=== PATIENT | female | born 1955 | race Caucasian/White ===

== ENCOUNTER 2016-06-21 07:56 | Emergency (ER) | payer MEDICARE ==
[~2016-06-21] VITALS: Ht 175.3 cm; Wt 88.6 kg
[~2016-06-21 07:56] MED LIST: ARIP10TA16 PO; KLO2T PO; LIT300 PO; METO25TA6 PO; OXYC15TA79 PO; TIZA4TAB4 PO
[2016-06-21 08:06] VITALS: BP 134/66; PULSE 68; RESP 16; O2SAT 98
--- NOTE | 2016-06-21 08:09 | ED.REPORT ---
HPI-Back Pain 40 and Over Date of Service Jun 21, 2016 ED Provider: The patient is a 61 year old female with history of chronic back and neck pain, who presents to the emergency department complaining of left lower back pain that began 1.5 weeks ago. A few days before her pain began she was more active than normal, playing in the snow with her grandchildren and bowling. She is able to ambulate and drove herself to the emergency department. She took 10 mg oxycodone and 600 mg Ibuprofen this morning. She states she started vomiting last night due to pain. She denies lower extremity pain, bladder/bowel incontinence, numbness, weakness or inability to walk. Nursing Notes Stated Complaint: BACK PAIN Chief Complaint: Back Pain or Injury Nursing Notes Reviewed: Yes Allergies: Coded Allergies: buspirone HCl (Verified Allergy, Severe, 12/14/15) naproxen (Verified Allergy, Severe, 12/14/15) piroxicam (Verified Allergy, Severe, 12/14/15) sertraline HCl (Verified Allergy, Severe, 12/14/15) succinylcholine (Verified Allergy, Severe, 12/14/15) zolmitriptan (Verified Allergy, Unknown, 12/14/15) Uncoded Allergies: SHELLFISH (Allergy, Unknown, 10/18/13) Scheduled Clonazepam (Clonazepam) 2 Mg Tablet 2 MG PO DAILY Desvenlafaxine (Khedezla) 100 Mg Tab 100 MG PO DAILY Furosemide (Furosemide) 20 Mg Tab 20-40 MG PO DAILY Metoprolol Tartrate (Metoprolol Tartrate) 100 Mg Tablet 100 MG PO BID Mirtazapine (Mirtazapine) 30 Mg Tablet 30 MG PO HS Tizanidine (Tizanidine) 4 Mg Tablet 4 MG PO TID Vortioxetine Hydrobromide (Brintellix) 10 Mg Tablet 10 MG PO DAILY Scheduled PRN Ketorolac Tromethamine (Ketorolac Tromethamine) 10 Mg Tablet 10 MG PO TID PRN PRN For Pain Oxycodone (Roxicodone) 5 Mg Tablet 10 MG PO Q4H PRN PRN For Pain General Time Seen by MD: 08:08 Chief Complaint Back pain Hx Obtained From: Patient Arrived By: Walk-in Sudden in Onset?: No Onset Occurred: More than a week ago... Symptom Duration: Since onset Caused by: Chronic Injury Location: : Perispinal lumbar Quality: Same as prior, Painful Radiation: : Does not radiate Severity: Current: Moderate Severity: Maximum: Moderate Recent Healthcare: No recent hospitalization Similar Sx Previous: Yes Past Medical History Past Medical History Chronic neck and back pain, seeing the [facility] Restless leg syndrome TBI Sacrum injuries secondary to falls Anxiety Past Surgical History Reports: Hysterectomy Family History Noncontributory Smoking History Current Every Day Smoker Social History Alcohol Use: "Social" Drug Use: Denies drug use Other Social History: Poor social support, Local resident Ambulatory Status Independent Review of Systems GI: Reports: Vomiting (secondary to pain) Musculoskeletal: Reports: Back pain, Denies: Extremity pain Neurologic: Denies: Bladder dysfunction, Bowel dysfunction, Focal weakness, Numbness, Problem walking Complete sys rev & neg: except as marked. Physical Exam Initial Vital Signs Vital Signs (First) Date Time Temp Pulse Resp B/P Pulse Ox O2 Delivery O2 Flow Rate FiO2 06/21/16 08:06 36.5 68 16 134/66 98 Room Air Initial VS: Reviewed Head / Eyes: Atraumatic, Normocephalic, PERRL ENT: Mucous membranes moist, Conjunctiva normal, No scleral icterus Neck: Supple, Non-tender, Full range of motion Lymphatic: No lymphadenopathy Extremities: Vascular intact, Neuro intact, No swelling, No tenderness Skin: Warm, Dry, No cyanosis Psychiatric: Mood/affect normal, Behavior normal, Normal thought content General/Constitutional: Awake, Alert Respiratory / Chest: Atraumatic, Breath sounds NL, Breath sounds = bilat, No respiratory distress, No rales, No rhonchi, No wheezing Cardiovascular: Heart rate NL, Regular rhythm, Heart sounds NL, No murmurs, Peripheral circulation NL Abdomen: Atraumatic, Soft, Non-tender, No guarding, No rebound, No distention, No palpable mass, No pulsatile mass Back: No midline vertebral tend, Straight leg raise neg Left lumbar paraspinal and buttock tenderness Neurologic: Oriented X3, Speech NL, No motor deficits, No sensory deficits, Cerebellar NL, Memory NL, Gait NL Re-Eval/Medical Decision Med Decision/Clinical Course This is a very pleasant 61-year-old female with a chronic pain syndrome exacerbation due to overuse. High-risk features are absent. Patient is treated medically and has improved and is agreeable to discharge. She requests oral Toradol. Extensive discussion, education, reassurance, and follow-up precautions provided. Source of Hx: Old records Re-Evaluation/Progress #1: Time of Eval: 09:43 Re-Evaluation/Progress Note: Rechecked the patient. Re-Evaluation/Progress #2: Time of Eval: 10:22 Re-Evaluation/Progress Note: Rechecked the patient. She is feeling better and ready to be discharged home. All questions were addressed. Counseled Regarding: Diagnosis, Need for follow-up, When/why to return to ED Discharge & Departure Impression: Primary Impression: Low back pain Chronicity: chronic Back pain laterality: left Sciatica presence: without sciatica Qualified Code: M54.5 - Low back pain Disposition: Home Discharge Condition All VS Reviewed: Yes Condition: Stable Patient Instructions: Acute Low Back Pain (ED) Additional Instructions: Thank you for entrusting us with your care today. Your exam findings are reassuring. There is no evidence of anything acutely dangerous at this time. Use the Toroidal as needed for pain. Followup with your regular doctor if your symptoms continue. You can also followup at [facility] for further pain management options. Return to the emergency department if you develop focal weakness or numbness, bladder/bowel incontinence, or any other new or concerning symptoms. Referrals: Zackery Johns MD (PCP) Scribe Attestation Portions of this note were transcribed by Paula Reeves. I, Dr. Tamayo personally performed the history, physical exam and medical decision-making; I reviewed and confirmed the accuracy of the information in the transcribed note. Signed by: Delfin Felder, 06/21/2016 and 1038. copies to: Zackery Johns MD, Timothy S DO Jun 21, 2016 08:09 Paula Reeves Jun 21, 2016 08:11
[2016-06-21] MEDS ORDERED: DESV100T14 PO (08:28)
[2016-06-21] MEDS ORDERED: VORT10TA PO (08:28)
[2016-06-21] MEDS ORDERED: METO100T3 PO (08:28)
[2016-06-21] MEDS ORDERED: MIRT30TA6 PO (08:28)
[2016-06-21] MEDS ORDERED: OXYC-474 PO (08:28)
[2016-06-21] MEDS ORDERED: FUR20 PO (08:28)
[2016-06-21] MEDS ORDERED: Ondansetron 8 mg ODT Tablet PO ONE (09:30)
[2016-06-21] MEDS ORDERED: KETO10TA PO (10:38)
[2016-06-21 11:09] VITALS: BP 114/72; PULSE 50; O2SAT 97
== END 2016-06-21 11:01 | disposition home or self-care (01) ==
LOC: SED 07:56
DX: M54.5 Low back pain (principal); M54.2 Cervicalgia; G89.4 Chronic pain syndrome; R11.10 Vomiting, unspecified; F17.200 Nicotine dependence, unspecified, uncomplicated; Z87.820 Personal history of traumatic brain injury; Z87.828 Personal history of other (healed) physical injury and trauma; Z88.8 Allergy status to other drugs, medicaments and biological substances; Z88.6 Allergy status to analgesic agent
CPT/HCPCS: 96372; 99284; J3360

== ENCOUNTER 2016-12-16 08:03 | Emergency (ER) | payer MEDICARE ==
[~2016-12-16] VITALS: Ht 175.3 cm; Wt 90.9 kg
[~2016-12-16 08:03] MED LIST changes: -ARIP10TA16 PO; +DESV100T14 PO; +FUR20 PO; +KETO10TA PO; -LIT300 PO; +METO100T3 PO; -METO25TA6 PO; +MIRT30TA6 PO; +OXYC-474 PO; -OXYC15TA79 PO; +VORT10TA PO
[2016-12-16 08:06] VITALS: BP 161/80; PULSE 63; RESP 26; O2SAT 100
--- NOTE | 2016-12-16 08:07 | ED.REPORT ---
HPI-Chest Pain 40 and Over Date of Service Dec 16, 2016 ED Provider: Berto Ha MD Patient is a 61 year old female with a history of chronic neck and back pain, depression, restless leg syndrome, previous TBI, and sacral injuries who presents to the ED with multiple medical complaints that became increasingly worse this morning. The patient's chief complaint is that she is experiencing a migraine headache. Patient additionally reports experiencing chest pain, worsening stress, anxiety, nausea, vomiting and a migraine for the past 4 days which has resulted in insomnia for the past few nights. Her migraine is localized on the left side of her head and is associated with photophobia. She reports that this feels similar to her previous migraine headaches. Her chest pain is an ache and is not exacerbated by anything and does not radiate anywhere outside the chest wall. She denies cardiac history or any current blood thinners. The chest discomfort seems to be associated with her migraine and has been present for the last 4 days ever since her migraine headache started. Nursing Notes Stated Complaint: PAIN IN CHEST/NECK/BACK Chief Complaint: General Complaint Nursing Notes Reviewed: Yes Allergies: Coded Allergies: buspirone HCl (Verified Allergy, Severe, 12/14/15) naproxen (Verified Allergy, Severe, 12/14/15) piroxicam (Verified Allergy, Severe, 12/14/15) sertraline HCl (Verified Allergy, Severe, 12/14/15) succinylcholine (Verified Allergy, Severe, 12/14/15) zolmitriptan (Verified Allergy, Unknown, 12/14/15) Uncoded Allergies: SHELLFISH (Allergy, Unknown, 10/18/13) Scheduled Clonazepam (Clonazepam) 2 Mg Tablet 2 MG PO DAILY Desvenlafaxine (Khedezla) 100 Mg Tab 100 MG PO DAILY Furosemide (Furosemide) 20 Mg Tab 20-40 MG PO DAILY Metoprolol Tartrate (Metoprolol Tartrate) 100 Mg Tablet 100 MG PO BID Mirtazapine (Mirtazapine) 30 Mg Tablet 30 MG PO HS Tizanidine (Tizanidine) 4 Mg Tablet 4 MG PO TID Vortioxetine Hydrobromide (Brintellix) 10 Mg Tablet 10 MG PO DAILY Scheduled PRN Ketorolac Tromethamine (Ketorolac Tromethamine) 10 Mg Tablet 10 MG PO TID PRN PRN For Pain Oxycodone (Roxicodone) 5 Mg Tablet 10 MG PO Q4H PRN PRN For Pain General Time Seen by MD: 08:06 Chief Complaint Other (Headache) Hx Obtained From: Patient Arrived By: Walk-in Sudden in Onset?: No Onset Occurred: 1 - 4 hours ago Symptom Duration: Since onset Location: : Back: Chest left: Chest right: Neck Quality: Painful Radiation: : Does not radiate Migration/Movement: Reports: None Severity: Current: Mild Severity: Maximum: Mild Associated with: Reports: Insomnia, Nausea, Vomiting Pertinent Negative: Pt denies other symptoms Recent Healthcare: No recent doctor visit, No recent hospitalization Risk Factors )( CAD Risk Stratification Risk factors reviewed )( TAD Risk Stratification Risk factors reviewed )( PE Risk Stratification Risk factors reviewed Past Medical History Past Medical History Chronic neck and back pain, seeing the [facility] Restless leg syndrome TBI Sacrum injuries secondary to falls Anxiety Past Surgical History Reports: Hysterectomy Family History Noncontributory Smoking History Current Every Day Smoker Social History Alcohol Use: "Social" Drug Use: Denies drug use Other Social History: Poor social support, Local resident Ambulatory Status Independent Review of Systems Cardiovascular: Reports: Chest pain GI: Reports: Nausea, Vomiting Musculoskeletal: Reports: Back pain, Extremity swelling (R leg), Neck pain Neurologic: Reports: Headache Psychiatric: Reports: Anxiety, Insomnia, Stress Complete sys rev & neg: except as marked. Eyes: Reports: Photophobia Physical Exam Initial Vital Signs Vital Signs (First) Date Time Temp Pulse Resp B/P Pulse Ox O2 Delivery O2 Flow Rate FiO2 12/16/16 08:06 36.2 63 26 161/80 100 Room Air Initial VS: Reviewed Head / Eyes: Atraumatic, Normocephalic, PERRL Extremities: Vascular intact, Neuro intact, No swelling, No tenderness Skin: Warm, Dry, No cyanosis Neurologic: Alert, Oriented, Nonfocal Psychiatric: Mood/affect normal, Behavior normal, Normal thought content General/Constitutional: Awake, Alert, Well developed Distress / Hydration: Positive: Distress moderate Behavior: Positive: Anxious Respiratory / Chest: Atraumatic, Breath sounds NL, Breath sounds = bilat, No respiratory distress, No chest tenderness Cardiovascular: Heart rate NL, Regular rhythm, Heart sounds NL, No gallop, No murmurs, No rubs Abdomen: Atraumatic, Soft, Non-tender, No distention Neck: Atraumatic, Supple, Full range of motion Back: Atraumatic, Inspection NL Interpretation & Diagnostics Lab Results Interpretation Result Diagram: 12/16/16 0900 12/16/16 0900 Test 12/16/16 09:00 White Blood Count 9.2th/mm3 (3.8-10.1) Red Blood Count 4.50mil/mm3 (3.90-5.20) Hemoglobin 14.7g/dL (12.0-15.6) Hematocrit 40.9% (35.0-46.0) Mean Corpuscular Volume 90.9fL (81-100) Mean Corpuscular Hemoglobin 32.7pg (27.0-35.0) Mean Corpuscular Hemoglobin Concent 35.9% (32.0-37.0) Red Cell Distribution Width 12.8% (12.3-15.4) Platelet Count 264bil/L (150-400) Neutrophils (%) (Auto) 65.5% (40-74) Lymphocytes (%) (Auto) 25.7% (14-46) Monocytes (%) (Auto) 7.1% (4-12) Eosinophils (%) (Auto) 1.4% (0-5) Basophils (%) (Auto) 0.2% (0-3) Sodium Level 129mEq/L (134-144) Potassium Level 3.3mEq/L (3.5-5.2) Chloride Level 87mEq/L (97-108) Carbon Dioxide Level 26mmol/L (18-29) Blood Urea Nitrogen 20mg/dL (8-27) Creatinine 0.82mg/dL (0.57-1.00) Estimat Glomerular Filtration Rate 102mL/min (>59) Glucose Level 116mg/dL (60-99) Calcium Level 9.3mg/dL (8.5-10.1) Magnesium Level 1.8mg/dL (1.6-2.6) Total Bilirubin 0.4mg/dL (0.0-1.2) Aspartate Amino Transf (AST/SGOT) 25U/L (0-50) Alanine Aminotransferase (ALT/SGPT) 29U/L (0-32) Alkaline Phosphatase 71U/L (25-165) Troponin T 0.010ug/L (0.0-0.011) Total Protein 7.3g/dL (6.4-8.4) Albumin 3.9g/dL (3.4-5.0) ECG Interpretation ECG Interpretation: Sinus rhythm Rate 54 bpm Normal axis Normal intervals No ST changes No T wave abnormalities 12/14/2015 - no acute changed baseline quality of EKG is poor due to pt movement Time: 08:54 Interpreted by: ED physician X-Ray Chest Interpretation Chest Xray Interpretation: IMPRESSION: No acute cardiopulmonary disease. Dictated by: Lesvia Lopez M.D. on 12/16/2016 at 9:35 Interpretation / Wet Read by: Interpret - Radiologist Re-Eval/Medical Decision Med Decision/Clinical Course Patient is a 61 year old female with a history of chronic neck and back pain, depression, restless leg syndrome, previous TBI, and sacral injuries who presents to the ED with multiple medical complaints that became increasingly worse this morning. The patient's chief complaint is that she is experiencing a migraine headache. Patient additionally reports experiencing chest pain, worsening stress, anxiety, nausea, vomiting and a migraine for the past 4 days which has resulted in insomnia for the past few nights. Her migraine is localized on the left side of her head and is associated with photophobia. She reports that this feels similar to her previous migraine headaches. Her chest pain is an ache and is not exacerbated by anything and does not radiate anywhere outside the chest wall. She denies cardiac history or any current blood thinners. The chest discomfort seems to be associated with her migraine and has been present for the last 4 days ever since her migraine headache started. Here in the emergency department the patient is very anxious though is otherwise afebrile, hemodynamically stable and in no apparent significant distress. Her neurologic examination is completely nonlateralizing. Patient was treated with the below medications:L IV fluids Reglan Benadryl Tylenol Ativan EKG Sinus rhythm Rate 54 bpm Normal axis Normal intervals No ST changes No T wave abnormalities 12/14/2015 - no acute changed baseline quality of EKG is poor due to pt movement Chest X-ray IMPRESSION: No acute cardiopulmonary disease. Laboratory studies notable as below: CBC Unremarkable CMP Unremarkable except Na - 129 K - 3.3 Troponin Negative Overall presentation consistent with panic/anxiety, migraine headache. After treatment with the above medications the patient reported dramatic symptom improvement. Serial neurologic assessments remained benign. Initial workup for acute coronary syndrome is negative. The nature of her presentation not classically suggestive of acute coronary syndrome. I applied the heart score to this patient's management and based on this I do not feel that further acute coronary syndrome workup is indicated. Presentation is unconvincing for pulmonary embolism as she denies shortness of breath and is without tachypnea, tachycardia, pleuritic chest pain. Patient reports feeling better and would like to go home. I feel that this is reasonable. Prior to discharge follow-up and return precautions were reviewed in detail with the patient who verbalized understanding and agreement with the plan. The patient was discharged in stable condition. Time of Eval: 10:19 Patient Status: Condition improved Re-Evaluation/Progress Note: Patient is rechecked. She is informed of all of her results. Discussed intended treatment plan. All of the pateint's questions are addressed. She understands and agrees with the treatment plan. Counseled Regarding: Diagnosis, Lab results, Need for follow-up, When/why to return to ED Discharge & Departure Primary Impression: Migraine headache Migraine type: unspecified Status migrainosus presence: without status migrainosus Intractability: not intractable Qualified Code: G43.909 - Migraine, unspecified, not intractable, without status migrainosus Additional Impressions: Hyponatremia Hypokalemia Anxiety Disposition: Home Discharge Condition All VS Reviewed: Yes Condition: Improved Patient Instructions: Migraine Headache (ED) Additional Instructions: Thank you for seeking care at emergency room. It is difficult for us to make definitive diagnoses in the ED but we believe that you are experiencing a migraine headache. Your lab work did reveal low levels of sodium and low levels of potassium. I recommend that you follow-up with your primary doctor in the next week. Our primary goal today in the ED was to evaluate you for any life-threatening conditions. Your evaluation was reassuring. You should return to the ED immediately if you develop worsening headache, neck stiffness, fevers, vomiting, cough, shortness of breath, chest pain, lightheadedness, weakness or any other concerning signs or symptoms. Referrals: Zackery Johns MD (PCP) Scribe Attestation Portions of this note were transcribed by Ronald Juárez. I, Dr. Ha personally performed the history, physical exam and medical decision-making; I reviewed and confirmed the accuracy of the information in the transcribed note. Signed by: Delfin Harrington, 12/16/16 1022. copies to: Zackery Johns MD,Berto Johnson MD Dec 16, 2016 08:07 RONALD JUÁREZ Dec 16, 2016 08:16
[2016-12-16] MEDS ORDERED: MetoCLOpramide 5 mg/mL 2 mL Inj IVPUSH ONE (08:25)
[2016-12-16] MEDS ORDERED: 0.9% Sodium Chloride 1,000 ML IV ONE (08:25)
[2016-12-16 09:13] LABS: BASOPHILS % (AUTO) 0.2 % (0-3); EOSINOPHILS % (AUTO) 1.4 % (0-5); MONOCYTES % (AUTO) 7.1 % (4-12); Mean Corpuscular Hemoglobin 32.7 pg (27.0-35.0); Mean Corpuscular Volume 90.9 fL (81-100); NEUTROPHILS % (AUTO) 65.5 % (40-74); Platelet Count 264 bil/L (150-400)
[2016-12-16 09:35] LABS: TROPONIN T 0.01 ug/L (0.0-0.011)
--- NOTE | 2016-12-16 09:37 | DRSVH ---
PROCEDURE: X-RAY CHEST ONE VIEW, PORTABLE ([id number]) INDICATIONS: Chest pain. TECHNIQUE: One view of the chest was acquired. COMPARISON: [facility], CR, XR CHEST 1VW (PORTABLE), 02/28/2015, 4:45. FINDINGS: Surgical changes and devices: None. Lungs and pleura: No pleural effusions or pneumothorax. Lungs are clear. Mediastinum: Mediastinal contours appear normal. Heart size is normal. Bones and chest wall: No suspicious bony lesions. Overlying soft tissues appear unremarkable. IMPRESSION: No acute cardiopulmonary disease. Dictated by: Lesvia Lopez M.D. on 12/16/2016 at 9:35 Approved by: Lesvia Lopez M.D. on 12/16/2016 at 9:35
[2016-12-16 09:42] VITALS: BP 107/62; PULSE 72; RESP 16; O2SAT 95
[2016-12-16 09:46] LABS: Magnesium 1.8 mg/dL (1.6-2.6)
[2016-12-16 10:40] VITALS: BP 132/67; PULSE 72; RESP 17; O2SAT 98
== END 2016-12-16 10:41 | disposition home or self-care (01) ==
LOC: SED 08:03
DX: G43.909 Migraine, unspecified, not intractable, without status migrainosus (principal); E87.1 Hypo-osmolality and hyponatremia; E87.6 Hypokalemia; F41.9 Anxiety disorder, unspecified; Z90.710 Acquired absence of both cervix and uterus; Z87.820 Personal history of traumatic brain injury; F17.200 Nicotine dependence, unspecified, uncomplicated; Z79.899 Other long term (current) drug therapy; Z88.8 Allergy status to other drugs, medicaments and biological substances
CPT/HCPCS: 36415; 71010; 80053; 83735; 84484; 85025; 93005; 96361; 96374; 96375; 99285; J1200; J2060; J2765; J7030

== ENCOUNTER 2016-12-20 05:01 | Emergency (ER) | payer MEDICARE ==
[~2016-12-20] VITALS: Ht 175.3 cm; Wt 90.9 kg
[2016-12-20 05:03] VITALS: BP 99/47; PULSE 65; RESP 16; O2SAT 93
--- NOTE | 2016-12-20 06:09 | ED.REPORT ---
HPI-General Illness Date of Service Dec 20, 2016 ED Provider: Zoran Barba DO The pt is a 61 y/o female w/ a hx of bipolar disorder, chronic neck and back pain, and depression presenting to the ED via EMS complaining of a headache. She is also experiencing pain in her back and neck. She was picked up by EMS due to her gagging over the toilet due to the pain. She describes the pain being the same chronic neck and back pain she has had in the past and has "good days and bad days". Her symptoms are also making it difficult for her to fall asleep. The pt reports taking Oxycodone earlier this morning and yesterday afternoon for the pain. Denies urinary incontinence. She is also experiencing an area of erythema and warmth that feels infected in the antecubital region of her L arm. The pt was seen in the ED 4 days ago for similar symptoms. The headache was fixed but the back and neck pain remained the same. She goes to the [facility] for her chronic neck and back pain. Nursing Notes Stated Complaint: NECK,BACK PAIN,HEADACHE Chief Complaint: Headache Nursing Notes Reviewed: Yes Allergies: Coded Allergies: buspirone HCl (Verified Allergy, Severe, 12/14/15) naproxen (Verified Allergy, Severe, 12/14/15) piroxicam (Verified Allergy, Severe, 12/14/15) sertraline HCl (Verified Allergy, Severe, 12/14/15) succinylcholine (Verified Allergy, Severe, 12/14/15) zolmitriptan (Verified Allergy, Unknown, 12/14/15) Uncoded Allergies: SHELLFISH (Allergy, Unknown, 10/18/13) Scheduled Cephalexin (Keflex) 500 Mg Capsule 500 MG PO QID Clonazepam (Clonazepam) 2 Mg Tablet 2 MG PO DAILY Desvenlafaxine (Khedezla) 100 Mg Tab 100 MG PO DAILY Furosemide (Furosemide) 20 Mg Tab 20-40 MG PO DAILY Metoprolol Tartrate (Metoprolol Tartrate) 100 Mg Tablet 100 MG PO BID Mirtazapine (Mirtazapine) 30 Mg Tablet 30 MG PO HS Tizanidine (Tizanidine) 4 Mg Tablet 4 MG PO TID Vortioxetine Hydrobromide (Brintellix) 10 Mg Tablet 10 MG PO DAILY Scheduled PRN Ketorolac Tromethamine (Ketorolac Tromethamine) 10 Mg Tablet 10 MG PO TID PRN PRN For Pain Oxycodone (Roxicodone) 5 Mg Tablet 10 MG PO Q4H PRN PRN For Pain General Time Seen by MD: 06:09 Chief Complaint Headache Hx Obtained From: Patient Arrived By: Walk-in Sudden in Onset?: Yes Onset Occurred: 4 days ago Symptom Duration: Since onset Recent Healthcare: Recent doctor visit, Recent hospitalization Similar Sx Previous: Yes Past Medical History Past Medical History Chronic neck and back pain, seeing the [facility] Restless leg syndrome TBI Sacrum injuries secondary to falls Anxiety Bipolar disorder Depression Suicidal ideations Past Surgical History Reports: Hysterectomy Family History Noncontributory Smoking History Current Every Day Smoker Social History Alcohol Use: "Social" Drug Use: Denies drug use Other Social History: Poor social support, Local resident Ambulatory Status Independent Review of Systems Full Review of Systems Female: Denies: Incontinence Musculoskeletal: Reports: Back pain, Neck pain Neurologic: Reports: Headache, Slurred speech Complete sys rev & neg: except as marked. Physical Exam Vital Signs Vital Signs Date Time Temp Pulse Resp B/P Pulse Ox O2 Delivery O2 Flow Rate FiO2 12/20/16 05:03 36.5 65 16 99/47 93 Room Air Initial VS: Reviewed General/Constitutional: Awake, Alert Alertness: Positive: Somnolent Head / Eyes: Atraumatic, Normocephalic ENT: Atraumatic, Airway patent, Mucous membranes moist Neck: Atraumatic, Supple, Full range of motion C-Spine nontender Respiratory / Chest: Atraumatic, Breath sounds NL, Breath sounds = bilat, No respiratory distress Cardiovascular: Heart rate NL, Regular rhythm, Heart sounds NL Abdomen: Atraumatic, Soft, Non-tender Back: Atraumatic, Full range of motion Thoracic and lumbar spine nontender Upper Extremities Upper Extremity / MS: Atraumatic, Full range of motion Lower Extremity / Pelvis / MS: Atraumatic, No deformity Intact motor and sensory function from L1 to S1 bilaterally Skin: Warm, Dry, Intact Rash / Lesion Notes: minor swelling to the left antecubital fossa with redness and warmth, no induration or fluctuance Neurologic: Oriented X3, No sensory deficits Intact motor and sensory function from L1 to S1 bilaterally Interpretation & Diagnostics Lab Results Interpretation Test 12/20/16 05:11 Hold Purple Top Tube Received (Received) Hold Blue Top Tube Received (Received) Hold [place] Top Tube Received (Received) Re-Eval/Medical Decision Med Decision/Clinical Course Patient presents complaining of chronic pain symptoms. Her physical exam is notable for minor swelling to the left antecubital fossa with redness and warmth, no induration or fluctuance. She is neurologically intact and does not have reproducible back pain. She fully identifies that this her neck and back pain are chronic and have not changed from the prior baseline. She is sleepy in the room, it does not seem prudent to give her narcotic medications due to her sleepiness. When told that we would pursue nonnarcotic pharmacologic options for her pain, She stated that that would be a waste of time and requested discharge home. She is up and ambulatory with a steady gait after a period of observation in the ER. She will be discharged. Keflex is prescribed for the redness and warmth to the left arm which may be superficial thrombophlebitis or very early cellulitis. Return and follow-up precautions given Source of Hx: Old records Time of Eval: 07:03 Re-Evaluation/Progress Note: Pt rechecked. Pt was falling asleep in the room and was told narcotics would not be given and would now like to go home. F/U instructions and RTER warnings given. All questions addressed. Counseled Regarding: Diagnosis, Lab results, Need for follow-up, When/why to return to ED Discharge & Departure Primary Impression: Acute exacerbation of chronic low back pain Disposition: Home Discharge Condition All VS Reviewed: Yes Condition: Stable Additional Instructions: Continue your chronic pain medications. Call your doctor in the morning for close follow-up. Avoid overusing your medications as this can cause excessive sleepiness. Also, on your left arm you either have very early cellulitis or a superficial thrombophlebitis. Apply hot packs and use Keflex as prescribed. Return to the ER as needed for high fever, loss of bowel or bladder control, new numbness or weakness, or other concerns Referrals: Zackery Johns MD (PCP) Scribe Attestation Portions of this note were transcribed by Daniel Avina. I, Dr. Barba personally performed the history, physical exam and medical decision-making; I reviewed and confirmed the accuracy of the information in the transcribed note. Signed by : Delfin Villalobos, 12/20/16 and [id number]. copies to: Zackery Johns MD, Timothy S DO Dec 20, 2016 06:09 Daniel Avina Dec 20, 2016 06:16
[2016-12-20] MEDS ORDERED: Ketorolac 15 mg/mL Inj IVPUSH ONE (06:35)
[2016-12-20] MEDS ORDERED: Ondansetron 2 mg/mL 2 mL Inj IVPUSH PRN (06:35)
[2016-12-20] MEDS ORDERED: CEPH-512 PO (07:19)
[2016-12-20 07:54] VITALS: BP 95/60; PULSE 77; RESP 14; O2SAT 94
== END 2016-12-20 07:40 | disposition home or self-care (01) ==
LOC: SED 05:01
DX: M54.5 Low back pain (principal); G89.29 Other chronic pain; F41.8 Other specified anxiety disorders; F31.9 Bipolar disorder, unspecified; F17.200 Nicotine dependence, unspecified, uncomplicated; Z88.8 Allergy status to other drugs, medicaments and biological substances
CPT/HCPCS: 96374; 96375; 99284; J1885; J2405

== ENCOUNTER 2017-01-21 02:56 | Emergency (ER) | payer MEDICARE ==
[~2017-01-21] VITALS: Ht 175.3 cm; Wt 90.9 kg
[~2017-01-21 02:56] MED LIST changes: +CEPH-512 PO
[2017-01-21 03:05] VITALS: BP 123/47; PULSE 61; RESP 18; O2SAT 98
--- NOTE | 2017-01-21 03:13 | ED.REPORT ---
HPI-General Illness Date of Service Jan 21, 2017 ED Provider: Dr. Posey Pt is a 61 year old female with a hx of traumatic brain injury presenting to the ED complaining of black diarrhea onset 5 days ago. Associated symptoms include severe lower back pain, abdominal bloating, LE swelling, diaphoresis, and trouble with ambulation due to pain. Denies fever, chills, nausea, vomiting , SOB or wheezing. She states that she came to the ED today because her neighbor advised her to. Pt reports that she has been using Pepto Bismol but that the black stool preceded her use of the Pepto Bismol. Nursing Notes Stated Complaint: POSS ABDOMINAL BLEEDING Chief Complaint: Female Abdominal Pain Nursing Notes Reviewed: Yes Allergies: Coded Allergies: buspirone HCl (Verified Allergy, Severe, 12/14/15) naproxen (Verified Allergy, Severe, 12/14/15) piroxicam (Verified Allergy, Severe, 12/14/15) sertraline HCl (Verified Allergy, Severe, 12/14/15) succinylcholine (Verified Allergy, Severe, 12/14/15) zolmitriptan (Verified Allergy, Unknown, 12/14/15) Uncoded Allergies: SHELLFISH (Allergy, Unknown, 10/18/13) Scheduled Cephalexin (Keflex) 500 Mg Capsule 500 MG PO QID Clonazepam (Clonazepam) 2 Mg Tablet 2 MG PO DAILY Desvenlafaxine (Khedezla) 100 Mg Tab 100 MG PO DAILY Furosemide (Furosemide) 20 Mg Tab 20-40 MG PO DAILY Metoprolol Tartrate (Metoprolol Tartrate) 100 Mg Tablet 100 MG PO BID Mirtazapine (Mirtazapine) 30 Mg Tablet 30 MG PO HS Tizanidine (Tizanidine) 4 Mg Tablet 4 MG PO TID Vortioxetine Hydrobromide (Brintellix) 10 Mg Tablet 10 MG PO DAILY Scheduled PRN Ketorolac Tromethamine (Ketorolac Tromethamine) 10 Mg Tablet 10 MG PO TID PRN PRN For Pain Oxycodone (Roxicodone) 5 Mg Tablet 10 MG PO Q4H PRN PRN For Pain General Time Seen by MD: 03:12 Chief Complaint Blood in stool, Diarrhea Hx Obtained From: Patient Arrived By: Walk-in Sudden in Onset?: No Onset Occurred: 5 days ago Symptom Duration: Since onset Location: : Back Quality: Painful Severity: Current: Moderate Severity: Maximum: Severe Recent Healthcare: No recent doctor visit, No recent hospitalization Similar Sx Previous: No Past Medical History Past Medical History Traumatic brain injury Chronic neck and back pain, seeing the [facility] Restless leg syndrome TBI Sacrum injuries secondary to falls Anxiety Bipolar disorder Depression Suicidal ideations Past Surgical History Reports: Hysterectomy Family History Noncontributory Smoking History Current Every Day Smoker Social History Alcohol Use: "Social" Drug Use: Denies drug use Other Social History: Poor social support, Local resident Ambulatory Status Independent Review of Systems Full Review of Systems Constitutional: Denies: Chills, Fever Respiratory: Denies: Shortness of breath, Wheezing GI: Reports: Bloody/tarry stool, Diarrhea, Denies: Nausea, Vomiting Musculoskeletal: Reports: Back pain, Extremity swelling Skin: Reports Diaphoresis Complete sys rev & neg: except as marked. Physical Exam Vital Signs Vital Signs Date Time Temp Pulse Resp B/P Pulse Ox O2 Delivery O2 Flow Rate FiO2 01/21/17 03:05 36.8 61 18 123/47 98 Room Air Initial VS: Reviewed General/Constitutional: Well-developed, Well-nourished Head / Eyes: Atraumatic, Normocephalic, PERRL ENT: Mucous membranes moist, Conjunctiva normal, No scleral icterus Neck: Supple, Non-tender, Full range of motion Respiratory: Breath sounds normal, Clear to auscultation, No respiratory distress Cardiovascular: Regular rate & rhythm, Heart sounds normal, Intact distal pulses Abdomen / GI: Soft, Non-tender, No guarding, No rebound, No distention Neurologic: Alert, Oriented, Nonfocal Psychiatric: Mood/affect normal, Behavior normal, Normal thought content Back: Atraumatic Tender lower back Skin: Atraumatic, Color NL, No rash Diaphoretic Interpretation & Diagnostics Lab Results Interpretation Result Diagram: 01/21/17 0315 01/21/17 0315 Test 01/21/17 03:15 01/21/17 03:55 White Blood Count 7.4th/mm3 (3.8-10.1) Red Blood Count 4.61mil/mm3 (3.90-5.20) Hemoglobin 14.8g/dL (12.0-15.6) Hematocrit 44.2% (35.0-46.0) Mean Corpuscular Volume 95.9fL (81-100) Mean Corpuscular Hemoglobin 32.1pg (27.0-35.0) Mean Corpuscular Hemoglobin Concent 33.5% (32.0-37.0) Red Cell Distribution Width 13.2% (12.3-15.4) Platelet Count 300bil/L (150-400) Neutrophils (%) (Auto) 37.6% (40-74) Lymphocytes (%) (Auto) 50.5% (14-46) Monocytes (%) (Auto) 7.9% (4-12) Eosinophils (%) (Auto) 3.3% (0-5) Basophils (%) (Auto) 0.4% (0-3) Prothrombin Time 9.4sec (8.1-12.5) Prothromb Time International Ratio 0.88ratio Sodium Level 138mEq/L (134-144) Potassium Level 3.7mEq/L (3.5-5.2) Chloride Level 92mEq/L (97-108) Carbon Dioxide Level 31mmol/L (18-29) Blood Urea Nitrogen 22mg/dL (8-27) Creatinine 1.18mg/dL (0.57-1.00) Estimat Glomerular Filtration Rate 67mL/min (>59) Glucose Level 117mg/dL (60-99) Calcium Level 9.6mg/dL (8.5-10.1) Magnesium Level 1.9mg/dL (1.6-2.6) Total Bilirubin 0.2mg/dL (0.0-1.2) Aspartate Amino Transf (AST/SGOT) 29U/L (0-50) Alanine Aminotransferase (ALT/SGPT) 33U/L (0-32) Alkaline Phosphatase 90U/L (25-165) Total Protein 7.9g/dL (6.4-8.4) Albumin 4.2g/dL (3.4-5.0) Lipase 38U/L (13-60) Lactic Acid Level 1.1mmol/L (0.4-2.0) Re-Eval/Medical Decision Med Decision/Clinical Course 61-year-old presents with five days of diarrhea described as dark to black. Worse after use of Pepto-Bismol, but appears to have preceded the Pepto-Bismol. Hemoglobin is normal. Known medication of active GI bleeding at this point. Remainder of her lab exam is benign as is her physical exam. Unable to obtain a stool sample after more than two hours of attempts here. Provided with a stool sample collection kit and is advised to return home and then return here with sample as soon as possible. PCR and white cell smear ordered. Smoking cessation discussed also. Time of Eval: 05:43 Patient Status: Condition improved Re-Evaluation/Progress Note: Pt is unable to give a stool sample so she will be discharged home with a home stool kit. Pt understands and agrees with plan. Counseled Regarding: Diagnosis, Lab results, Need for follow-up, When/why to return to ED Discharge & Departure Primary Impression: Diarrhea Diarrhea type: unspecified type Qualified Code: R19.7 - Diarrhea, unspecified Disposition: Home Discharge Condition All VS Reviewed: Yes Condition: Improved Patient Instructions: Acute Diarrhea (ED) Additional Instructions: Your hemoglobin is normal and your evaluation at this point is benign- appearing. We need stool to evaluate further. Bring a sample back in the provided snap top container as soon as possible. It is important that it be fresh and not be delayed in arriving at the lab. Obtain a sample at home and return as soon as possible. Discontinue using loperamide. Follow-up with your doctor in the office. Return if you develop worsening diarrhea, blood or more black material in your stool. Referrals: Zackery Johns MD (PCP) Evitaiberickson Attestation Portions of this note were transcribed by Jannet Cuenca. I, Dr. Posey personally performed the history, physical exam and medical decision-making; I reviewed and confirmed the accuracy of the information in the transcribed note. Signed by: Delfin Parker, 01/21/2017. copies to: Zackery Johns MD, Christopher W MD Jan 21, 2017 03:13 JANNET CUENCA Jan 21, 2017 03:33
[2017-01-21] MEDS ORDERED: 0.9% Sodium Chloride 1,000 ML IV ONE ×2 (03:32→04:45)
[2017-01-21 03:43] LABS: Mean Corpuscular Hemoglobin 32.1 pg (27.0-35.0); Mean Corpuscular Volume 95.9 fL (81-100); NEUTROPHILS % (AUTO) 37.6 % (40-74); Platelet Count 300 bil/L (150-400)
[2017-01-21 03:44] LABS: BASOPHILS % (AUTO) 0.4 % (0-3); EOSINOPHILS % (AUTO) 3.3 % (0-5); MONOCYTES % (AUTO) 7.9 % (4-12)
[2017-01-21 04:00] LABS: Magnesium 1.9 mg/dL (1.6-2.6)
[2017-01-21 04:14] LABS: INR 0.88 ratio
[2017-01-21 05:57] VITALS: BP 103/43; PULSE 63; RESP 16; O2SAT 98
== END 2017-01-21 05:58 | disposition home or self-care (01) ==
LOC: SED 02:56
DX: R19.7 Diarrhea, unspecified (principal); M54.5 Low back pain; R14.0 Abdominal distension (gaseous); M79.89 Other specified soft tissue disorders; R61 Generalized hyperhidrosis; F41.9 Anxiety disorder, unspecified; F32.9 Major depressive disorder, single episode, unspecified; F17.200 Nicotine dependence, unspecified, uncomplicated; Z87.820 Personal history of traumatic brain injury; Z88.8 Allergy status to other drugs, medicaments and biological substances
CPT/HCPCS: 36415; 80053; 83605; 83690; 83735; 85025; 85610; 86850; 87040; 96360; 96361; 99284; J7030